=== PATIENT | male | born 1990 | race Caucasian/White ===

== ENCOUNTER 2018-11-19 19:33 | Emergency (ER) | payer MEDICAID | END 2018-11-19 22:05 | disposition home or self-care (01) | LOC: FTE 22:05 | DX: T15.91XA Foreign body on external eye, part unspecified, right eye, initial encounter (principal); S05.91XA Unspecified injury of right eye and orbit, initial encounter; X58.XXXA Exposure to other specified factors, initial encounter; Y92.9 Unspecified place or not applicable | CPT/HCPCS: 65220; 99283-25 ==

== ENCOUNTER 2018-11-23 11:04 | Emergency (ER) | payer MEDICAID ==
[2018-11-23] MEDS: TETRACAINE 0.5% 4 ML OPH RIGHT EYE (11:34)
[2018-11-23] MEDS: FLUORESCEIN STRIP RIGHT EYE (11:34)
== END 2018-11-23 12:45 | disposition home or self-care (01) ==
LOC: FTE 11:04
DX: T15.91XD Foreign body on external eye, part unspecified, right eye, subsequent encounter (principal); X58.XXXD Exposure to other specified factors, subsequent encounter; Y92.9 Unspecified place or not applicable
CPT/HCPCS: 99283; Z7502

== ENCOUNTER → 2019-02-24 | Emergency (ER) | payer SELFPAY, MEDICAID ==
[2019-02-24] MEDS: TETRACAINE 0.5% 4 ML OPH BOTH EYES (20:23)
[2019-02-24] MEDS: FLUORESCEIN STRIP RIGHT EYE (20:23)
== END | disposition home or self-care (01) ==
LOC: FTE 18:02
DX: S05.01XA Injury of conjunctiva and corneal abrasion without foreign body, right eye, initial encounter (principal); X58.XXXA Exposure to other specified factors, initial encounter; Y92.89 Other specified places as the place of occurrence of the external cause
CPT/HCPCS: 99283